=== PATIENT | female | born 1975 | race Caucasian/White ===

== ENCOUNTER 2016-05-25 13:54 | Emergency (ER) | payer OTHER ==
[~2016-05-25] VITALS: Ht 157.5 cm; Wt 59.9 kg
[2016-05-25 14:08] VITALS: Ht 157.5 cm; Wt 59.9 kg
[2016-05-25] MEDS ORDERED: KETOROLAC 30 MG INJ IV STA (16:09)
[2016-05-25] MEDS ORDERED: METOCLOPRAMIDE 10 MG INJ IV STA (16:09)
[2016-05-25] MEDS ORDERED: SOD CHLORIDE 0.9% 1,000 ML IV STA (16:09)
[2016-05-25] MEDS ORDERED: DIPHENHYDRAMINE 50 MG INJ IV STA (16:09)
[2016-05-25 17:03] LABS: ADD SCAN DIFF NO
[2016-05-25 17:04] LABS: BASOPHILS % 0.4 % (0.0-2.0); EOSINOPHILS # 0.1 10^3/ul (0.0-0.5); EOSINOPHILS % 1.1 % (0.0-7.0); HEMATOCRIT 40.7 % (37.0-47.0); HEMOGLOBIN 13.5 g/dl (12.0-16.0); LYMPHOCYTES # 2.4 10^3/ul (0.8-2.9); LYMPHOCYTES % 29.6 % (15.0-51.0); MEAN CORPUSCULAR HEMOGLOBIN 30.5 pg (29.0-33.0); MEAN CORPUSCULAR HGB CONC 33.2 g/dl (32.0-37.0); MEAN CORPUSCULAR VOLUME 91.9 fl (82.0-101.0); MEAN PLATELET VOLUME 8.6 fl (7.4-10.4); MONOCYTE # 0.5 10^3/ul (0.3-0.9); MONOCYTES % 5.7 % (0.0-11.0); NEUTROPHIL # 5.1 10^3/ul (1.6-7.5); PLATELET COUNT 305 10^3/UL (140-415); RED BLOOD COUNT 4.43 10^6/ul (4.20-5.40); RED CELL DISTRIBUTION WIDTH 12.2 % (11.5-14.5); WHITE BLOOD COUNT 8.1 10^3/ul (4.8-10.8)
[2016-05-25 17:27] LABS: ALBUMIN 4.2 g/dl (3.3-4.9); POTASSIUM 4.2 mmol/L (3.5-5.1)
[2016-05-25 17:29] LABS: CREATININE 0.67 mg/dl (0.44-1.00)
[2016-05-25 17:30] LABS: ALBUMIN/GLOBULIN RATIO 1.13; BILIRUBIN,INDIRECT 0.2 mg/dl (0-1.1); BILIRUBIN,TOTAL 0.2 mg/dl (0.2-1.3); TOTAL PROTEIN 7.9 g/dl (6.1-8.1)
[2016-05-25 17:31] LABS: CALCIUM 9.4 mg/dl (8.4-10.2)
[2016-05-25] MEDS ORDERED: IBUP-1542 PO (18:20)
[2016-05-25] MEDS ORDERED: ONDA4TAB8 PO (18:20)
[2016-05-25] MEDS ORDERED: ONDANSETRON 4 MG INJ IV STA (18:21)
[2016-05-25 18:28] LABS: URINE BLOOD (Dip) POC Negative (NEGATIVE)
[2016-05-25] MEDS ORDERED: morphine 10 MG INJ IV ONE (18:30)
[2016-05-25] MEDS ORDERED: MECL-77 PO (18:36)
--- NOTE | 2016-05-25 18:42 | ERD ---
ER Documentation Chief Complaint Date/Time DATE: 05/25/16 TIME: 18:37 Chief Complaint dizziness x 1 week HPI This is a 41-year-old female presents to the ER complaining of multiple complaints. Patient states that over the last week she has had a severe headache that has been gradual in onset. Headache is located at the forehead and is nonradiating. Pain is constant. She denies any photophobia she denies any trauma. Patient is also complaining of dizziness for the last week. She describes it as a spinning sensation. She also feels as if she is going to pass out. Patient is also complaining of ear pressure. She does admit to nausea however denies vomiting or diarrhea. Patient denies any fevers or chills. She denies any neck pain or neck stiffness. Patient denies any vision changes. Her last normal menstrual period was May 04, 2016. She denies any urinary frequency or dysuria. ROS 12 point review of systems was done, all negative except per HPI. Medications Home Meds Active Scripts Meclizine Hcl* (Meclizine Hcl*) 25 Mg Tablet, 25 MG PO Q8H Y for DIZZINESS for 3 Days, TAB Prov:BILL,RENEA C 05/25/16 Ondansetron Hcl* (Zofran*) 4 Mg Tablet, 4 MG PO Q6H for NAUSEA AND/OR VOMITING, #30 TAB Prov:BILL,RENEA C 05/25/16 Ibuprofen* (Motrin*) 600 Mg Tab, 600 MG PO Q6, #30 TAB Prov:BILL,RENEA C 05/25/16 Allergies Allergies: Coded Allergies: No Known Drug Allergies (Verified Allergy, Unknown, 01/08/16) PMhx/Soc History of Surgery: No (CYST REMOVED ON BUTTOCKS) Anesthesia Reaction: No Hx Neurological Disorder: Yes Hx Respiratory Disorders: No Hx Cardiac Disorders: No Hx Psychiatric Problems: No Hx Miscellaneous Medical Probl: No Hx Alcohol Use: No Hx Substance Use: No Hx Tobacco Use: No Smoking Status: Never smoker Physical Exam Vitals Vital Signs Date Time Temp Pulse Resp B/P Pulse Ox O2 Delivery O2 Flow Rate FiO2 05/25/16 14:08 98.1 78 18 130/76 99 Physical Exam GENERAL: The patient is well developed and appropriate for usual state of health , in no apparent distress. HEENT: Atraumatic. Conjunctivae are pink. Pupils equal, round, and reactive to light. Extraocular muscles are grossly intact. No nystagmus. Bilateral tympanic membranes are clear with no evidence of erythema, bulging or perforation. NECK: C-spine is soft and supple. There is no cervical lymphadenopathy. CHEST: Clear to auscultation bilaterally. There are no rales, wheezes or rhonchi. HEART: Regular rate and rhythm. No murmurs, clicks, rubs or gallops. EXTREMITIES: Equal pulses bilaterally. There is no peripheral clubbing, cyanosis or edema. No focal swelling or erythema. Full range of motion. Grossly neurovascularly intact. NEURO: Alert and oriented. Cranial nerves II through XII are intact. Motor strength in all 4 extremities with 5/5 strength. Sensation grossly intact. Normal speech and gait. Negative Rhomberg. +2 DTRs. SKIN: There is no apparent rash or petechia. The skin is warm and dry. Result Diagram: 05/25/16 1630 05/25/16 1630 Results 24 hrs Laboratory Tests Test 05/25/16 16:30 05/25/16 18:27 White Blood Count 8.110^3/ul Red Blood Count 4.4310^6/ul Hemoglobin 13.5g/dl Hematocrit 40.7% Mean Corpuscular Volume 91.9fl Mean Corpuscular Hemoglobin 30.5pg Mean Corpuscular Hemoglobin Concent 33.2g/dl Red Cell Distribution Width 12.2% Platelet Count 10023^3/UL Mean Platelet Volume 8.6fl Neutrophils % 63.0% Lymphocytes % 29.6% Monocytes % 5.7% Eosinophils % 1.1% Basophils % 0.4% Nucleated Red Blood Cells % 0.0/100WBC Neutrophils # 5.110^3/ul Lymphocytes # 2.410^3/ul Monocytes # 0.510^3/ul Eosinophils # 0.110^3/ul Basophils # 0.010^3/ul Nucleated Red Blood Cells # 0.010^3/ul Sodium Level 141mmol/L Potassium Level 4.2mmol/L Chloride Level 102mmol/L Carbon Dioxide Level 28mmol/L Anion Gap 15 Blood Urea Nitrogen 14mg/dl Creatinine 0.67mg/dl Glucose Level 95mg/dl Calcium Level 9.4mg/dl Total Bilirubin 0.2mg/dl Direct Bilirubin 0.00mg/dl Indirect Bilirubin 0.2mg/dl Aspartate Amino Transf (AST/SGOT) 24IU/L Alanine Aminotransferase (ALT/SGPT) 27IU/L Alkaline Phosphatase 54IU/L Total Protein 7.9g/dl Albumin 4.2g/dl Globulin 3.70g/dl Albumin/Globulin Ratio 1.13 Bedside Urine pH (LAB) 7.0 Bedside Urine Protein (LAB) Negative Bedside Urine Glucose (UA) Negative Bedside Urine Ketones (LAB) Negative Bedside Urine Blood Negative Bedside Urine Nitrite (LAB) Negative Bedside Urine Leukocyte Esterase (L Negative Current Medications Medications (Trade) Dose Ordered Sig/Heena Route PRN Reason Start Time Stop Time Status Last Admin Dose Admin Sodium Chloride (NS) 1,000 ml @ 1,000 mls/hr Q1H STAT IV 05/25/16 16:09 05/25/16 17:08 DC 05/25/16 16:48 Metoclopramide HCl (Reglan) 10 mg ONCE STAT IV 05/25/16 16:09 05/25/16 16:12 DC 05/25/16 16:48 Ketorolac Tromethamine (Toradol) 30 mg ONCE STAT IV 05/25/16 16:09 05/25/16 16:12 DC 05/25/16 16:48 Diphenhydramine HCl (Benadryl) 25 mg ONCE STAT IV 05/25/16 16:09 05/25/16 16:12 DC 05/25/16 16:48 Morphine Sulfate (morphine) 6 mg ONCE ONCE IV 05/25/16 18:30 05/25/16 18:31 DC 05/25/16 18:33 Ondansetron HCl (Zofran Inj) 4 mg ONCE STAT IV 05/25/16 18:21 05/25/16 18:22 DC 05/25/16 18:32 Procedures/MDM Differential Diagnosis includes but is not limited to; tension headache, migraine headache, cluster headache, sinus headache, nonspecific febrile headache, trigeminal neurologia, subdural hematoma, subarachnoid bleeding, meningitis, encephalitis. Patient is neurologically intact with no focal neurological deficits. Headache could be a migraine headache or a tension headache. At this time I do not believe that CT imaging is needed as patient neurological exam is completely normal. She is afebrile and well-appearing. I doubt infectious etiology. She was given Toradol here in the ER for her headache which helped it, however headache returns. Patient was then given morphine and this completely took away her headache. In regards to patient's dizziness differential Diagnosis includes but is not limited to; Benign positional vertigo, labyrinthitis, vertigo, MS, acoustic neuroma, arrhythmia, anemia, hypoglycemia, infection, dehydration. Patient may be experiencing vertigo. I doubt arrhythmia as EKG was done at [address] elevation or T-wave inversion and was read by Dr. Gary. Her blood work was normal with no evidence of anemia, electrolyte abnormality, hypoglycemia. She is physical examination was benign. Patient will be sent home with ibuprofen, meclizine, Zofran. Patient is to follow-up with her primary care doctor within 1-2 days or return to ER sooner if symptoms worsen. My medical decision making was discussed with patient she understands and agrees with plan. Departure Diagnosis: Primary Impression: Multiple complaints Condition: Stable Patient Instructions: Dizziness, Unk Cause Additional Instructions: Call your primary care doctor TOMORROW for an appointment during the next 1-2 days.See the doctor sooner or return here if your condition worsens before your appointment time. RENEA KHAN May 25, 2016 18:42
[2016-05-25 20:05] VITALS: TEMP 97.5
[2016-05-25] MEDS ORDERED: SOD CHLORIDE 0.9% 1,000 ML IV ONE (20:30)
[2016-05-25 21:24] VITALS: PULSE 76; RESP 16
[2016-05-25 21:28] VITALS: BP 110/63
== END 2016-05-25 21:29 | disposition home or self-care (01) ==
LOC: FTE 13:54
DX: R42 Dizziness and giddiness (principal); R51 Headache; R11.0 Nausea
CPT/HCPCS: 80053; 81003; 85025; 93005; J1200; J1885; J2270; J2405; J2765; J7030; 36415; 96374; 96375